=== PATIENT | female | born 1970 | race Two or more races ===

== ENCOUNTER 2025-04-28 14:42 | Inpatient (IN) | payer MEDICAID, OTHER ==
[~2025-04-28] VITALS: Ht 165.1 cm; Wt 66.7 kg
--- NOTE | 2025-04-28 15:11 | ED.PDOC ---
HPI (NEURO) HPI Comments 54y F who presents to the ED for chief complaint of dizziness. Pt states yesterday,after dinner, pt went to bedroom and states while changing clothes, he felt lightheaded and dizzy. Pt denies any associated syncopal episodes and went to sleep. Pt today AM, she has been having dizziness and noted felt weak with increased dizziness while attempting to ambulate. Pt had associated nausea and vomiting episode and came to the ED for evaluation. Pt now in the ED, presents in wheelchair and is having dizziness but is alert and oriented x 4 and otherwise has noted stable vitals. Pt denies any other symptoms. Chief Complaint: Dizziness Time Seen by MD: 15:07 Reviewed Notes: Medications, Allergies Information Source: Patient Mode of Arrival: Wheelchair Brought in by: self Past Medical History PAST MEDICAL HISTORY: DM, HTN Surgical History: Denies all surgeries RECONCILIATION ANALYST History: Denies all RECONCILIATION ANALYST Hx Family History Family History: Reviewed,noncontributory to illness Social History Smoker: Non-Smoker Alcohol: Denies ETOH Use Drugs: Denies Drug Use Lives In: Home Constitutional: reports: malaise, weakness; denies: chills, diaphoresis, fatigue, fever, sweats, others EENTM: denies: blurred vision, double vision, ear bleeding, ear discharge, ear drainage, ear pain, ear ringing, eye pain, eye redness, hearing loss, mouth pain, mouth swelling, nasal discharge, nose bleeding, nose congestion, nose pain, photophobia, tearing, throat pain, throat swelling, voice changes, others Respiratory: denies: cough, hemoptysis, orthopnea, SOB at rest, shortness of breath, SOB with excertion, stridor, wheezing, others Cardiovascular: reports: dizzy spells; denies: chest pain, diaphoresis, Dyspnea on exertion, edema, irregular heart beat, left arm pain, lightheadedness, palpitations, PND, syncope, others Gastrointestinal: denies: abdomen distended, abdominal pain, blood streaked bowels, constipated, diarrhea, dysphagia, difficulty swallowing, hematemesis, melena, nausea, poor appetite, poor fluid intake, rectal bleeding, rectal pain, vomiting, others Genitourinary: denies: abnormal vagina bleeding, burning, dyspareunia, dysuria, flank pain, frequency, hematuria, incontinence, pain, , vagina discharge, urgency, others Neurological: reports: dizziness; denies: fainting, headache, left sided numbness, left sided weakness, numbness, paresthesia, pre-existing deficit, right sided numbness, right sided weakness, seizure, speech problems, tingling, tremors, weakness, others Musculoskeletal: denies: back pain, gout, joint pain, joint swelling, muscle pain, muscle stiffness, neck pain, others Integumetry: denies: bruises, change in color, change in hair/nails, dryness, laceration, lesions, lumps, rash, wounds, others Allergic/Immunocompromised: denies: Difficulty Healing, Frequent Infections, Hives, Itching, others Hematologic/Lymphatic: denies: anemia, blood clots, easy bleeding, easy bruising, swollen glands, others Endocrine: denies: excessive hunger, excessive sweating, excessive thirst, excessive urination, flushing, intolerance to cold, intolerance to heat, unexplained weight gain, unexplained weight loss, others Psychiatric: denies: anxiety, bipolar disorder, depression, hopeless, panic disorder, schizophrenia, sleepless, suicidal, others All Other Systems: Reviewed and Negative Physical Exam General Appearance: Moderate Distress HEENT: Normal ENT Inspection, Pharynx Normal, TMs Normal Neck: Full Range of Motion, Non-Tender, Normal, Normal Inspection Respiratory: Chest Non-Tender, Lungs Clear, No Accessory Muscle Use, No Respiratory Distress, Normal Breath Sounds Cardiovascular: No Edema, No JVD, No Murmur, No Gallop, Normal Peripheral Pulses, Regular Rate/Rhythm Breast Exam: Deferred Gastrointestinal: No Organomegaly, Non Tender, No Pulsatile Mass, Normal Bowel Sounds, Soft Genitalia: Deferred Pelvic: Deferred Rectal: Deferred Extremities: No calf tenderness, Normal capillary refill, Normal inspection, Normal range of motion, Non-tender, No pedal edema Musculoskeletal : Apperance: Normal Neurologic: Alert, incident manager II-XII nml as Tested, No Motor Deficits, Normal Affect, Normal Mood, No Sensory Deficits Cerebellar Function: NOT DONE Reflexes: NOT DONE Skin: Dry, Normal Color, Warm Peripheral Pulses: 3+ Radial (R), 3+ Radial (L) Lymphatic: No Adenopathy EKG EKG : Pulse Rate (adult): 100 [place]: Normal Cardiac Rhythm: ST Block: None Hypertrophy: None ST: Normal Was a procedure done? Was a procedure done?: No Differential Diagnosis (SZ) Seizure: Psychogenic Seizure, Closed Head Injury, CVA/TIA General Weakness: Dehydration, Dysrhythmia, Electrolyte imbalance, Encephalopathy, Hypoglycemia, Hypotension, Vertigo: central, Vertigo: peripheral X-Ray, Labs, Meds, VS Vital Signs Date Time Temp Pulse Resp B/P (MAP) Pulse Ox O2 Delivery O2 Flow Rate FiO2 04/28/25 15:11 100 04/28/25 14:56 100 04/28/25 14:44 98.0 123 18 123/86 97 98.0 Lab Test 04/28/25 15:00 Range/Units White Blood Count 14.2 H 4.4-10.8 10^3/uL Red Blood Count 5.40 H 4.0-5.20 10^6/uL Hemoglobin 16.0 12.2-16.2 g/dL Hematocrit 46.2 H 36.0-46.0 % Mean Corpuscular Volume 85.7 80.0-100.0 fL Mean Corpuscular Hemoglobin 29.6 28.0-32.0 pg Mean Corpuscular Hemoglobin Concent 34.6 32.0-36.0 g/dL Red Cell Distribution Width 14.0 11.8-14.3 % Platelet Count 460 H 140-450 10^3/uL Mean Platelet Volume 7.1 6.9-10.8 fL Neutrophils (%) (Auto) 87.3 H 37.0-80.0 % Lymphocytes (%) (Auto) 7.4 L 10.0-50.0 % Monocytes (%) (Auto) 4.7 0.0-12.0 % Eosinophils (%) (Auto) 0.3 0.0-7.0 % Basophils (%) (Auto) 0.3 0.0-2.0 % Neutrophils # (Auto) 12.4 H 1.6-8.6 10 ^3/uL Lymphocytes # (Auto) 1.0 0.4-5.4 10 ^3/uL Monocytes # (Auto) 0.7 0-1.3 10 ^3/uL Eosinophils # (Auto) 0 0-0.8 10 ^3/uL Basophils # (Auto) 0 0-0.2 10 ^3/uL Nucleated Red Blood Cells 0.0 % Sodium Level 138 136-145 mmol/L Potassium Level 3.8 3.5-5.1 mmol/L Chloride Level 103 98-107 mmol/L Carbon Dioxide Level 22 20-31 mmol/L Anion Gap 13 5-15 Blood Urea Nitrogen 12 9-23 mg/dL Creatinine 0.78 0.550-1.02 mg/dL Glomerular Filtration Rate Calc 90 >90 mL/min BUN/Creatinine Ratio 15.4 10.0-20.0 Serum Glucose 138 H 74-106 mg/dL Calcium Level 9.9 8.7-10.4 mg/dL Troponin I High Sensitivity < 3 L </=34 ng/L PROCEDURE(s): HWOCT - HEAD WITHOUT CONTRAST IMPRESSION: NO ACUTE INTRACRANIAL FINDINGS Patient alert. Complaining of dizziness. EKG reviewed does not show any acute changes. Vitals stable. Saturation pristine on room air. Establish intravenous access. Was given fluids. Neurological examination pristine. Explained to the patient. Was told to follow up with her primary care physician. Was told to come back if there is any problem. Time of 1ST Reevaluation: 15:40 Reevaluation 1ST: Unchanged Patient Education/Counseling: Diagnosis, Treatment Family Education/Counseling: No Family Present Departure 1 Departure Time of Disposition: 15:32 Impression: Primary Impression: Autonomic disorder Disposition: 01 HOME / SELF CARE / HOMELESS Condition: Good Discharged With: Self Critical Care Note Critical Care Time?: No Stability Stability form required: No Heart Score Heart Score: Heart Score Response (Comments) Value History Slightly Suspicious 0 EKG Normal 0 Age 45-64 1 Risk Factors >3 or Hx ASHD 2 Troponin Normal limit 0 Total 3 I personally scribed for ROSALINE LINTON MD) on 04/28/25 at 15:11. Electronically submitted by Amy Stafford ([place]). I personally scribed for ROSALINE LINTON MD ([email or web address]) on 04/28/25 at 17:16. Electronically submitted by Amy BHATIA). ROSALINE LINTON MD Apr 28, 2025 15:11
[2025-04-28 15:24] LABS: Chloride 103 mmol/L (98-107); Potassium 3.8 mmol/L (3.5-5.1); Sodium 138 mmol/L (136-145)
[2025-04-28 15:25] LABS: Anion Gap 13 (5-15); Carbon Dioxide 22 mmol/L (20-31)
[2025-04-28 15:26] LABS: Calcium 9.9 mg/dL (8.7-10.4)
[2025-04-28 15:30] LABS: BUN/Creatinine Ratio 15.4 (10.0-20.0); Blood Urea Nitrogen 12 mg/dL (9-23); Hematocrit 46.2 % (36.0-46.0); Hemoglobin 16.0 g/dL (12.2-16.2); Mean Corpuscular Hemoglobin 29.6 pg (28.0-32.0); Mean Corpuscular Volume 85.7 fL (80.0-100.0); Nucleated Red Blood Cells % 0.0 %
[2025-04-28 15:31] LABS: Glucose 138 mg/dL (74-106)
--- NOTE | 2025-04-28 15:39 | DVH ---
CLINICAL HISTORY: DIZZINESS TECHNIQUE: Helical scanning was performed of the head from the skull base to the vertex. Multiplanar reconstructions were performed. This exam was performed according to our departmental dose optimization program. Up-to-date CT equipment and radiation dose reduction techniques are utilized as appropriate. WID: COMPARISON: None FINDINGS: There is no acute intracranial hemorrhage, CT evidence of acute ischemic changes, mass effect, midline shift, or extra-axial fluid collection. Ventricles are within normal limits The imaged intraorbital structures are unremarkable The imaged paranasal sinuses are clear. The mastoid air cells are clear. The calvarium is intact. IMPRESSION: NO ACUTE INTRACRANIAL FINDINGS
[2025-04-28] MEDS: SODIUM CHLORIDE 0.9% 1,000 ML IV ONE (18:51)
[2025-04-28] MEDS ORDERED: ONDANSETRON HCL 4 MG/2 ML VIAL IV PRN (22:30)
[2025-04-29] VITALS (13 sets, daily range): BP systolic 108–132; BP diastolic 43–73; PULSE 68–93; RESP 14–20; TEMP 98.1–98.9; O2SAT 95–100
[2025-04-29] MEDS: SODIUM CHLORIDE 0.9% 500 ML IV ONE (01:15)
[2025-04-29] MEDS ORDERED: BENA40TA71 PO (01:51)
[2025-04-29] MEDS ORDERED: METF-771 PO (01:51)
[2025-04-29] MEDS ORDERED: MELO7.5T7 PO (01:51)
[2025-04-29] MEDS ORDERED: ATOR20TA50 PO (01:51)
[2025-04-29 03:44] LABS: COVID19 ANTIGEN SOFIA FIA POSITIVE (NEGATIVE)
--- NOTE | 2025-04-29 05:00 | DVH ---
CHEST RADIOGRAPH Indication: asthma Technique: Single frontal view of the chest was obtained COMPARISON: None FINDINGS: Lines and Tubes: None Lungs: Increased interstital prominence. This may represent pulmonary vascular congestion and/or viral pneumonia. Pleura: No effusion. No pneumothorax. Cardiomediastinal contours: Unremarkable Bones: Unremarkable IMPRESSION: Increased interstital prominence. This may represent pulmonary vascular congestion and/or viral pneumonia.
--- NOTE | 2025-04-29 05:49 | DVHHPRES ---
History of Present Illness Resident Creating Document: BRENDAN MIJARES RESIDENT History of Present Illness Patient is a 54-year-old female with past medical history of diabetes mellitus, hypertension, asthma, vertigo who presented to the ED with chief complaints of dizziness which is associated with shortness of breath and chest pressure which is 7/10 in intensity since yesterday. Patient states that she felt lightheaded and dizzy were changing clothes and her legs gave out which made her sit down. Patient today morning also began to be dizzy while walking and felt weak and had to sit down patient denies any syncopal episodes or head trauma, loss of consciousness. Patient states she also had nausea, vomiting episode which was forced. patient states that this is not the 1st time she had these symptoms. PMHx: diabetes mellitus, hypertension, asthma, vertigo PSHx: 2 ectopic pregnancies, cholecystectomy Family history: reviewed, noncontributory Social history: denies smoking, drinking, drug use Home medication: atorvastatin, aspirin, metformin, benazepril, meclizine Allergic history: denies [facility] Patient is A&O x4 and still complains of dizziness and shortness of breath which is more when she stands up. Patient denies any chest pressure or chest pain, nausea, vomiting, diarrhea, constipation. Review of Systems Constitutional: No: Fever, Chills, Sweats, Weakness, Malaise, Other Eyes: No: Pain, Vision change, Conjunctivae inflammation, Eyelid inflammation, Other, Redness ENT: No: Ear pain, Ear discharge, Nose pain, Nose discharge, Nose congestion, Mouth pain, Mouth swelling, Throat pain, Throat swelling, Other Respiratory: Shortness of breath; No: Cough, Dry, SOB with excertion, Wheezing, Hemoptysis, Pleuritic Pain, Sputum, Wheezing, Other Cardiovascular: No: Chest Pain, Palpitations, Orthopnea, Paroxysmal Noc. Dyspnea, Edema, Lt Headedness, Other Gastrointestinal: No: Nausea, Vomiting, Abdominal Pain, Diarrhea, Constipation, Melena, Hematochezia, Other Genitourinary: No Dysuria, No Frequency, No Incontinence, No Hematuria, No Retention, No Other Musculoskeletal: No: other, neck pain, shoulder pain, arm pain, back pain, hand pain, leg pain, foot pain Skin: No: Rash, Lesions, Jaundice, Bruising, Other Neurological: No: Weakness, Numbness, Incoordination, Change in speech, Confusion, Seizures, Other Allergies: Coded Allergies: NO KNOWN ALLERGIES (Unverified , 04/28/25) Medications Current Medications Medications Dose Ordered Sig/Hemalatha Route Start Time Stop Time Status Last Admin Dose Admin Ondansetron HCl 4 mg Q4HP PRN IV 04/28/25 22:30 Enoxaparin Sodium 40 mg DAILY SC 04/29/25 10:00 Albuterol 2.5 mg Q4HWA [facility] 04/29/25 06:00 Ipratropium Rel[place] 0.5 mg Q6HWA [facility] 04/29/25 06:00 Azithromycin 500 mg DAILY PO 04/29/25 10:00 Atorvastatin Calcium 40 mg HS PO 04/29/25 22:00 Exam Vital Signs Vital Signs Date Time Temp Pulse Resp B/P (MAP) Pulse Ox O2 Delivery O2 Flow Rate FiO2 04/29/25 01:41 75 20 117/66 97 0.0 21 04/29/25 01:00 98.9 98.9 04/28/25 21:52 Room Air Exam General: Patient alert and oriented in person, place and time. Patient following commands. Generalized weakness HEENT: Normocephalic, atraumatic, moist mucous membranes Respiratory/pulmonary: Clear lungs bilaterally, vesicular murmurs present in almost all lung carlos, no associated crackles or wheezes. Cardiovascular: Normal heart sounds S1 and S2 with no associated murmurs Abdomen: Abdomen nondistended, there is no pain to palpation in any of the abdominal quadrants, no palpable masses. Extremities: There is no peripheral edema present at the lower extremities. Peripheral Pulses: 3+ Radial (R). 3+ Radial (L). 3+ Dorsalis pedis (R). 3+ Dorsalis pedis(L) Skin: No rashes or pruritus, there is no sacral edema present at this time. Neurological: Intact cranial nerves with no focal neurologic deficits Labs/Xrays Labs Test 04/29/25 01:45 04/28/25 22:11 04/28/25 15:00 Range/Units Influenza Type A Antigen Negative Negative Influenza Type B Antigen Negative Negative SARS-CoV-2 Antigen (Rapid) Positive NEGATIVE POC Glucose 108 H 70-106 mg/dl White Blood Count 14.2 H 4.4-10.8 10^3/uL Red Blood Count 5.40 H 4.0-5.20 10^6/uL Hemoglobin 16.0 12.2-16.2 g/dL Hematocrit 46.2 H 36.0-46.0 % Mean Corpuscular Volume 85.7 80.0-100.0 fL Mean Corpuscular Hemoglobin 29.6 28.0-32.0 pg Mean Corpuscular Hemoglobin Concent 34.6 32.0-36.0 g/dL Red Cell Distribution Width 14.0 11.8-14.3 % Platelet Count 460 H 140-450 10^3/uL Mean Platelet Volume 7.1 6.9-10.8 fL Neutrophils (%) (Auto) 87.3 H 37.0-80.0 % Lymphocytes (%) (Auto) 7.4 L 10.0-50.0 % Monocytes (%) (Auto) 4.7 0.0-12.0 % Eosinophils (%) (Auto) 0.3 0.0-7.0 % Basophils (%) (Auto) 0.3 0.0-2.0 % Neutrophils # (Auto) 12.4 H 1.6-8.6 10 ^3/uL Lymphocytes # (Auto) 1.0 0.4-5.4 10 ^3/uL Monocytes # (Auto) 0.7 0-1.3 10 ^3/uL Eosinophils # (Auto) 0 0-0.8 10 ^3/uL Basophils # (Auto) 0 0-0.2 10 ^3/uL Nucleated Red Blood Cells 0.0 % Sodium Level 138 136-145 mmol/L Potassium Level 3.8 3.5-5.1 mmol/L Chloride Level 103 98-107 mmol/L Carbon Dioxide Level 22 20-31 mmol/L Anion Gap 13 5-15 Blood Urea Nitrogen 12 9-23 mg/dL Creatinine 0.78 0.550-1.02 mg/dL Glomerular Filtration Rate Calc 90 >90 mL/min BUN/Creatinine Ratio 15.4 10.0-20.0 Serum Glucose 138 H 74-106 mg/dL Calcium Level 9.9 8.7-10.4 mg/dL Troponin I High Sensitivity < 3 L </=34 ng/L SEPSIS Sepsis Screen Date sepsis recognized/suspect: Apr 28, 2025 Time Sepsis recognized/suspect: 2200 Recent Procedure: No On Antibiotic Therapy: No Respiratory Rate >20: No Heart Rate >90: Yes Temp<36 C (96.8 F) or >38.3 C: No SBP <90 or MAP <65 mmHG: No New Acute Mental Status Change: No Is the patient on CPAP, BIPAP,: No Physician Orders Electrocardigram (04/28/25:) Admit (04/28/25:) Code Status (04/28/25:) 2 Gm Sodium Diet (04/29/25 Breakfast) Ondansetron Hcl (Zofran) (04/28/25 22:30) Enoxaparin Sodium (Lovenox) (04/29/25 10:00) Fall Risk Precautions In Place QSHIFT (04/28/25:) Complete Blood Count (04/29/25 04:00) Comprehensive Metabolic Panel (04/29/25 04:00) Condition: Critical (04/28/25:) Oxygen By Nasal Cannula (04/28/25:) Stat Ekg For Chest Pain (04/28/25:) Notify Md Of Changes From Base (04/28/25 22:) Coin Wrapping Machine Operator For 24 Hours (04/28/25 22:) Emergency Dysrhythmia Protocol (04/28/25:) Rhythm Strips Once Every Shift (04/28/25:) Electrocardigram (04/28/25 22:29) Chest Xray 1 View (04/29/25 01:12) Albuterol Medneb (Ventolin Medneb) (04/29/25 06:00) Ipratropium Medneb (Atrovent Medneb) (04/29/25 06:00) B-Type Natriuretic Peptide (04/29/25 01:12) Urinalysis (04/29/25 01:12) Drug Screen (04/29/25 01:12) PTPTT (04/29/25 01:12) Orthostatic Vital Signs (04/29/25 01:12) Magnesium (04/29/25 04:00) Azithromycin Tablet (Zithromax Tablet) (04/29/25 10:00) Hemoglobin A1c (04/29/25 04:30) Atorvastatin (Lipitor) (04/29/25 22:00) Vital Signs Date Time Temp Pulse Resp B/P (MAP) Pulse Ox O2 Delivery O2 Flow Rate FiO2 04/29/25 01:41 75 20 117/66 97 0.0 21 04/29/25 01:00 98.9 87 16 121/71 (88) 97 98.9 04/28/25 22:07 82 04/28/25 21:52 98.2 98 20 117/66 (83) 97 98.2 04/28/25 21:52 98 20 97 Room Air Assessment/Plan Assessment/Plan Presyncope due to Orthostatic hypotension Pneumonia, likely due to Gram-positive/Gram-negative bacterial/viral COVID 19 pneumonia Generalized weakness due to above -chest x-ray: Increased interstital prominence. This may represent pulmonary vascular congestion and/or viral pneumonia. -labetalol, ipratropium med nebs -azithromycin -orthostatic vitals -COVID, positive -influenza negative Diabetes mellitus HbA1c Hypertension -resume home med Asthma History of vertigo DVT prophylaxis: Lovenox Goals of care addressed with the patient for more than 27 minutes: Full code status Case discussed with Dr. Covarrubias, patient and nurse Plan discussed with: Patient My Orders Orders - BRENDAN MIJARES Procedure Category Date Status Time Admit ADMIT 04/28/25 Transmitted 22:27 Code Status CODE 04/28/25 Transmitted 22:27 2 Gm Sodium Diet DIET 04/29/25 Transmitted Breakfast Ondansetron Hcl PHA 04/28/25 In Process (Zofran) 22:30 Enoxaparin Sodium PHA 04/29/25 In Process (Lovenox) 10:00 Fall Risk Precautions FRANCESCA 04/28/[address] 22:27 Complete Blood Count LAB 04/29/25 Logged 04:00 Comprehensive LAB 04/29/25 Logged Metabolic Panel 04:00 Condition: Critical FRANCESCA 04/28/25 In Process 22:27 Oxygen By Nasal RT 04/28/25 Transmitted Cannula 22:27 Stat Ekg For Chest FRANCESCA 04/28/25 In Process Pain 22:27 Notify Of Changes FRANCESCA 04/28/25 In Process From Base 22:27 Coin Wrapping Machine Operator For FRANCESCA 04/28/25 In Process 24 Hours 22:27 Emergency Dysrhythmia FRANCESCA 04/28/25 In Process Protocol 22:27 Rhythm Strips Once [facility] 04/28/25 In Process Every Shift 22:27 Electrocardigram EKG 04/28/25 Logged 22:29 Chest Xray 1 View XY 04/29/25 Resulted 01:12 Albuterol Medneb PHA 04/29/25 In Process (Ventolin Medneb) 06:00 Ipratropium Medneb PHA 04/29/25 In Process (Atrovent Medneb) 06:00 B-Type Natriuretic LAB 04/29/25 Logged Peptide 01:12 Urinalysis LAB 04/29/25 Logged 01:12 Drug Screen LAB 04/29/25 Logged 01:12 PTPTT LAB 04/29/25 Logged 01:12 Orthostatic Vital ORDERS 04/29/25 Transmitted Signs 01:12 Magnesium LAB 04/29/25 Logged 04:00 Azithromycin Tablet PHA 04/29/25 In Process (Zithromax Tablet) 10:00 Hemoglobin A1c LAB 04/29/25 Logged 04:30 Atorvastatin (Lipitor) PHA 04/29/25 In Process 22:00 Visit Coding STANDARD RES Billing Provider: BRANDEE COVARRUBIAS MD Date of Service if different f: Apr 28, 2025 Common Visit Codes: 87532-CSQKYIW INP/OBS CARE (HIGH) Secondary Visit Codes: [id number] CARE PLAN 30 MINUTES BRENDAN MIJARES RESIDENT Apr 29, 2025 05:49
[2025-04-29] MEDS: ALBUTEROL SULF 2.5 MG/0.5ML(0.5%) NEB SOLN NEB SCH (08:06)
[2025-04-29] MEDS: IPRATROPIUM BROM 0.5 MG/2.5ML INH SOL NEB SCH (08:07)
--- NOTE | 2025-04-29 08:26 | ECG ---
[facility] Test Date: 2025-04-28 Test Time: 14:56:41 Pat Name: MARY RAJAN Department: Room: 0249T B Gender: F Form Coverer: GP : 1970 Requested By: ROSALINE LINTON Order Number: [id number] Reading MD: Keith Alfred Measurements Intervals [place] Rate: 100 P: 75 [place]: 120 QRS: 67 QRSD: 75 T: -26 QT: 332 QTc: 429 Interpretive Statements Sinus tachycardia Borderline T abnormalities, diffuse leads Baseline wander in lead(s) II,III,aVR,aVL,aVF,V1,V2,V3 Electronically Signed On 04-29-2025 10:33:26 PST by Keith Alfred Please click the below link to view image of tracing.
[2025-04-29] MEDS: AZITHROMYCIN 250 MG TAB PO SCH (09:33)
[2025-04-29] MEDS: ZINC SULFATE 220mg CAP or TAB PO SCH (09:33)
[2025-04-29] MEDS: ENOXAPARIN SOD 40 MG/0.4 ML SYRINGE SC SCH (09:34)
[2025-04-29] MEDS ORDERED: ALBUTEROL SULF HFA 90MCG INH 200DOSE IN PRN ×2 (10:00→10:30)
--- NOTE | 2025-04-29 10:32 | DVHPNRES ---
Progress Note Date Seen: Apr 29, 2025 Resident Creating Document: RONALD CHRISTINA RESIDENT Medical Necessity Reason Pt with a Central, PICC or Fol: No Subjective Review of Systems Patient is 74 years old female with a past medical history of hypertension, diabetes mellitus, asthma came with a complaint of dizziness and shortness of breaths and chest pain. As per patient she has been having dizziness, feeling tired chest pain and shortness of breaths that started 2 days before. Has been was central, intermittent, pressure-like, no radiation, no aggravating or relieving factor, mild in nature. Patient also endorsed some shortness of breaths. Patient reported she was also feeling tired and fatigued and feeling dizzy when titrate walk around. Denied any fever, cough, palpitation, diarrhea, acute joint redness or swelling or sick contact. On arrival patient was tachycardic, Initial lab workup revealed leukocytosis with WBC 14.2, white with a normal limit, tested positive for COVID 19. CXR- Increased interstital prominence, may represent pulmonary vascular congestion and/or viral pneumonia. CT head no acute intracranial finding. EKG sinus tachycardia, no acute STT wave change PMHx: diabetes mellitus, hypertension, asthma, vertigo PSHx: 2 ectopic pregnancies, cholecystectomy Family history: reviewed, noncontributory Social history: denies smoking, drinking, drug use Home medication: atorvastatin, aspirin, metformin, benazepril, meclizine Allergic history: denies ROS Gastrointestinal- denies any rectal bleeding, nausea or vomiting Musculoskeletal-denies acute joint swelling or tenderness or redness Neurological- denies acute dysarthria, dysphagia, change in vision Psychiatry- denies depression or SI or HI Skin- denies acute rash or purpura Patient was seen today at bedside Labs and chart reviewed Ordered blood culture Patient on ceftriaxone and azithromycin for pneumonia As patient is a room air, no acute respiratory distress, we will continue conservative management for COVID-19 Objective vital signs Vital Sign Date Time Temp Pulse Resp B/P (MAP) Pulse Ox O2 Delivery O2 Flow Rate FiO2 04/29/25 08:13 68 16 100 04/29/25 08:07 Room Air* 0 21 21 04/29/25 04:24 98.4 112/57 (75) 98.4 Total Intake and Output 04/28/25 04/28/25 04/29/25 15:00 23:00 07:00 Intake Total 1000 ml 0 ml Balance 1000 ml 0 ml medications Current Medications Medications Dose Ordered Sig/Hemalatha Route Start Time Stop Time Status Last Admin Dose Admin Ondansetron HCl 4 mg Q4HP PRN IV 04/28/25 22:30 Enoxaparin Sodium 40 mg DAILY SC 04/29/25 10:00 04/29/25 09:34 40 MG Azithromycin 500 mg DAILY PO 04/29/25 10:00 04/29/25 09:33 500 MG Atorvastatin Calcium 40 mg HS PO 04/29/25 22:00 Zinc Sulfate 220 mg DAILY PO 04/29/25 10:00 04/29/25 09:33 220 MG Ceftriaxone Sodium 50 ml @ 100 mls/hr DAILY@09 IV 04/30/25 09:00 Albuterol 180 mcg TIDPRN PRN IN 04/29/25 10:00 UNV Albuterol 180 mcg Q6HR IN 04/29/25 12:00 UNV Sodium Chloride 1,000 ml @ 100 mls/hr Q10H IV 04/29/25 10:30 UNV Albuterol 180 mcg TID PRN IN 04/29/25 10:30 UNV Examination General examination- awake, alert HEENT- PEERLA, no acute nasal discharge Cardiovascular- Chest wall tenderness +, S1-S2 audible, rate and rhythm regular, no murmur Respiratory-wheezing bilaterally+ Gastrointestinal-nontender, bowel sound+. Nondistended Musculoskeletal-no acute joint swelling or tenderness or redness Lower extremity- no leg edema Neurological- cranial nerves intact, no acute dysarthria or dysphagia Psychiatry- denies depression or SI or HI Skin- no acute rash or purpura laboratory and microbiology Laboratory Tests 04/28/25 15:00 Test 04/28/25 15:00 Range/Units Serum Glucose 138 H 74-106 mg/dL Problem List/Assessment/Plan Problem List/Assessment/Plan Assessment and plan-patient is a case of sepsis due to pneumonia and COVID-19. Conservative measures for COVID-19 as this patient is in room air without acute respiratory distress. On ceftriaxone and azithromycin for pneumonia. Pending blood culture. # sepsis likely due to pneumonia Acute pneumonia Gram-positive versus Gram-negative # COVID-19 pneumonia # asthma -patients leukocyte, tachycardic, tachypneic -COVID positive -chest x-rayIncreased interstital prominence, may represent pulmonary vascular congestion and/or viral pneumonia. -pending blood culture Continue ceftriaxone and azithromycin as prescribed -continue IV fluid as per -nebulization PRN -monitor vitals Isolation and contact precaution Conservative management for COVID-19 #Acute CP likely due to Costochondritis #ruled out ACS - EKG no acute ST/T wave changes - Trop I WNL - chest wall tenderness positive - continue current conservative managemnt # hypertension -monitor blood pressure # diabetes mellitus # hyperlipidemia -low carb diet Goals of care, Code status we will go; discussed with >15 minutes PUD prophylaxis: Pantoprazole DVT prophylaxis: Lovenox Plan discussed with Dr. Onofre , nursing staff, Total time spent on patient evaluation, chart review, assessment and plan, discussion discussion >35 minutes Plan discussed with: Patient, Other (RN) My Orders My Orders Orders - RONALD CHRISTINA Procedure Category Date Status Time Thyroid Stimulating LAB 04/29/25 Logged Hormone 07:10 Vitamin D, 25-Hydroxy LAB 04/29/25 Logged 07:10 Vitamin B12 LAB 04/29/25 Logged 07:10 Folate (Folic Acid) LAB 04/29/25 Logged 07:10 Hepatic Panel LAB 04/29/25 Logged 07:10 Lipid Panel LAB 04/29/25 Logged 07:10 Zinc Sulfate PHA 04/29/25 In Process 10:00 Mrcp Mri MRI 04/29/25 Logged 09:44 Albuterol Inhaler PHA 04/29/25 Logged (Ventolin Hfa) 10:00 Albuterol Inhaler PHA 04/29/25 Logged (Ventolin Hfa) 12:00 Sodium Chloride 0.9% PHA 04/29/25 Logged 10:30 Albuterol Inhaler PHA 04/29/25 Logged (Ventolin Hfa) 10:30 Visit Coding STANDARD RES Billing Provider: ROCKY PEREZ MD Date of Service if different f: Apr 29, 2025 Common Visit Codes: [id number] INP/OBS CARE(HIGH) RONALD CHRISTINA Apr 29, 2025 10:31
[2025-04-29] MEDS: SODIUM CHLORIDE 0.9% 1,000 ML IV SCH (10:56)
[2025-04-29 11:08] LABS: Hematocrit 41.3 % (36.0-46.0); Hemoglobin 14.3 g/dL (12.2-16.2); Mean Corpuscular Hemoglobin 29.8 pg (28.0-32.0); Mean Corpuscular Volume 86.1 fL (80.0-100.0); Nucleated Red Blood Cells % 0.1 %
[2025-04-29 11:23] LABS: Albumin 4.2 g/dL (3.2-4.8); Alkaline Phosphatase 77 U/L (46-116); Anion Gap 10 (5-15); BUN/Creatinine Ratio 14.3 (10.0-20.0); Blood Urea Nitrogen 10 mg/dL (9-23); Calcium 9.3 mg/dL (8.7-10.4); Carbon Dioxide 24 mmol/L (20-31); Chloride 105 mmol/L (98-107); Magnesium 2.0 mg/dL (1.6-2.6); Potassium 3.7 mmol/L (3.5-5.1); Sodium 139 mmol/L (136-145); Total Protein 6.8 g/dL (5.7-8.2)
[2025-04-29 11:24] LABS: Albumin 4.3 g/dL (3.2-4.8); Alkaline Phosphatase 77.0 U/L (46-116); Bilirubin, Total 0.5 mg/dL (0.2-1.0); Cholesterol 154.0 mg/dL (< 200); Total Protein 6.8 g/dL (5.7-8.2); Triglycerides 121.0 mg/dL (< 150)
[2025-04-29 11:25] LABS: Alanine Aminotransferase 102 U/L (7-40); Alanine Aminotransferase 102.0 U/L (7-40); Bilirubin, Direct 0.2 mg/dL (<0.3); Bilirubin, Total 0.5 mg/dL (0.2-1.0); Glucose 126 mg/dL (74-106); HDL Cholesterol 34.0 mg/dL (40-59); INR 1.01 (0.9-1.15); Partial Thromboplastin Time 29.4 SEC (24.5-34.5); Prothrombin Time 10.7 sec (9.3-11.8)
[2025-04-29] MEDS ORDERED: ALBUTEROL SULF HFA 90MCG INH 200DOSE IN SCH (12:00)
[2025-04-29] MEDS ORDERED: ALBUTEROL SULF 2.5 MG/0.5ML(0.5%) NEB SOLN NEB SCH (12:00)
[2025-04-29] MEDS: ALBUTEROL SULF HFA 90MCG INH 200DOSE IN SCH (12:00)
[2025-04-29] MEDS ORDERED: DEXTROSE (50%) 50ML SYRG IV PRN (14:15)
[2025-04-29] MEDS: PANTOPRAZOLE 40 MG TAB PO SCH (15:35)
[2025-04-29] MEDS: InsuLIN REG 1unit/0.01ml Soln (100units/ml) SC SCH (17:00)
[2025-04-29] MEDS: ACCU-CHEK COMFORT CURVE STRIP VI SCH (17:00)
[2025-04-29 17:02] LABS: Amphetamine Screen, Urine Neg (NEGATIVE); Barbiturate Scree,Urine Neg (NEGATIVE); Benzodiazephine Screen, Urine Neg (NEGATIVE); Cannabinoid Screen, Urine Neg (NEGATIVE); Cocaine Screen, Urine Neg (NEGATIVE); Opiate Scree,Urine Neg (NEGATIVE); Phencyclidine Screen, Urine Neg (NEGATIVE)
[2025-04-29 17:14] LABS: Urine Protein, UAD Negative (Negative)
--- NOTE | 2025-04-29 19:55 | ECG ---
[facility] Test Date: 2025-04-28 Test Time: 22:07:42 Pat Name: MARY RAJAN Department: Room: 0209 Gender: F Kitchen Manager: KEIRY : 1970 Requested By: ROSALINE LINTON Order Number: [id number] Reading MD: Keith Alfred Measurements Intervals [place] Rate: 82 P: 23 VA: 138 QRS: 33 QRSD: 75 T: 13 QT: 401 QTc: 469 Interpretive Statements Sinus rhythm Electronically Signed On 05-05-2025 17:29:22 PST by Keith Alfred Please click the below link to view image of tracing.
[2025-04-29] MEDS: ATORVASTATIN 20 MG TAB PO SCH (21:26)
[2025-04-30] VITALS (7 sets, daily range): BP systolic 104–119; BP diastolic 70–74; PULSE 70–86; RESP 14–20; TEMP 36.6; O2SAT 95–97
[2025-04-30] MEDS: ACETAMINOPHEN 325 MG TAB PO ONE (04:23)
[2025-04-30 06:24] LABS: Hematocrit 40.2 % (36.0-46.0); Hemoglobin 14.0 g/dL (12.2-16.2); Mean Corpuscular Hemoglobin 30.0 pg (28.0-32.0); Mean Corpuscular Volume 86.0 fL (80.0-100.0); Nucleated Red Blood Cells % 0.1 %
[2025-04-30 06:31] LABS: Anion Gap 11 (5-15); Carbon Dioxide 23 mmol/L (20-31); Chloride 105 mmol/L (98-107); Potassium 3.7 mmol/L (3.5-5.1); Sodium 139 mmol/L (136-145)
[2025-04-30 06:32] LABS: Calcium 9.2 mg/dL (8.7-10.4)
[2025-04-30 06:37] LABS: BUN/Creatinine Ratio 14.5 (10.0-20.0); Blood Urea Nitrogen 10 mg/dL (9-23)
[2025-04-30 06:38] LABS: Magnesium 2.0 mg/dL (1.6-2.6)
[2025-04-30 06:40] LABS: Glucose 116 mg/dL (74-106)
--- NOTE | 2025-04-30 14:01 | DVHPN2 ---
Reviewed: H&P Changes from previous H/P or p: No Changes General: Per HPI Eyes: No Pain, No Vision change, No Conjunctivae inflammation, No Eyelid inflammation, No Other, No Redness ENT: No Ear pain, No Ear discharge, No Nose pain, No Nose discharge, No Nose congestion, No Mouth pain, No Mouth swelling, No Throat pain, No Throat swelling, No Other Cardiovascular: No Chest Pain, No Palpitations, No Orthopnea, No Paroxysmal Noc. Dyspnea, No Edema, No Lt Headedness, No Other Respiratory: No Cough, No Dry; Shortness of breath; No SOB with excertion, No Wheezing, No Hemoptysis, No Pleuritic Pain, No Sputum, No Other Gastrointestinal: No Nausea, No Vomiting, No Abdominal Pain, No Diarrhea, No Constipation, No Melena, No Hematochezia, No Other Genitourinary: No Dysuria, No Frequency, No Incontinence, No Hematuria, No Retention, No Other Musculoskeletal: No other, No neck pain, No shoulder pain, No arm pain, No back pain, No hand pain, No leg pain, No foot pain Skin: No Rash, No Lesions, No Jaundice, No Bruising, No Other Objective Vitals Vital Signs Date Time Temp Pulse Resp B/P (MAP) Pulse Ox O2 Delivery O2 Flow Rate FiO2 04/30/25 12:34 96 Room Air 0.0 04/30/25 12:34 21 04/30/25 12:34 70 18 04/30/25 09:00 97.9 119/74 (89) 97.9 Intake/Output Intake and Output 04/30/25 07:00 Intake Total 1600 ml Balance 1600 ml Intake Oral 1600 ml # Voids 5 Exam GEN: Healthy appearing, well-developed, NAD. HEENT: NC/AT; MMM. CV: RRR, no m/r/g. LUNGS: CTAB, no w/r/c. ABD: Soft, NT/ND, NBS, no masses or organomegaly. EXT: skin Warm, well perfused. no rashes. No clubbing, cyanosis, or edema. NEURO: Ambulating with no limitations. No focal deficits. Medications Current Medications Medications Dose Ordered Sig/Hemalatha Route Start Time Stop Time Status Last Admin Dose Admin Ondansetron HCl 4 mg Q4HP PRN IV 04/28/25 22:30 Enoxaparin Sodium 40 mg DAILY SC 04/29/25 10:00 04/30/25 09:39 40 MG Azithromycin 500 mg DAILY PO 04/29/25 10:00 04/30/25 09:38 500 MG Atorvastatin Calcium 40 mg HS PO 04/29/25 22:00 04/29/25 21:26 40 MG Zinc Sulfate 220 mg DAILY PO 04/29/25 10:00 04/30/25 09:38 220 MG Ceftriaxone Sodium 50 ml @ 100 mls/hr DAILY@09 IV 04/30/25 09:00 04/30/25 09:39 100 MLS/HR Albuterol 180 mcg Q6HR IN 04/29/25 12:00 04/30/25 12:34 180 MCG Sodium Chloride 1,000 ml @ 100 mls/hr Q10H IV 04/29/25 10:30 04/29/25 21:26 100 MLS/HR Albuterol 180 mcg TID PRN IN 04/29/25 10:30 Diagnostic Test (Pha) 1 strip ACHS 04/29/25 17:00 04/30/25 11:44 1 STRIP Insulin Human Regular ACHS SC 04/29/25 17:00 04/30/25 11:46 2 UNITS Dextrose 50 ml UD PRN IV 04/29/25 14:15 Pantoprazole Sodium 40 mg DAILY@0600 PO 04/29/25 14:15 04/30/25 06:50 40 MG Laboratory Results Laboratory Tests 04/30/25 05:41 Chemistry Test 04/30/25 05:41 Calcium Level 9.2 mg/dL (8.7-10.4) Magnesium Level 2.0 mg/dL (1.6-2.6) Urinalysis Test 04/29/25 16:33 Urine Color Light-yellow (Yellow) Urine Clarity Clear (Clear) Urine pH 6.0 (5.0-9.0) Urine Specific [place] 1.011 (1.001-1.035) Urine Protein Negative (Negative) Urine Ketones Negative (Negative) Urine Blood Negative /uL (Negative) Urine Nitrite Negative (Negative) Urine Bilirubin Negative (Negative) Urine Urobilinogen 2 mg/dL (Negative) H Urine Leukocyte Esterase Negative /uL (Negative) Urine RBC <1 /hpf (0 - 4) Urine Microscopic WBC 2 /HPF (0-5) Urine Squamous Epithelial Cells Few /hpf (<5) Urine Bacteria Few /hpf (None Seen) H Urine Hyaline Casts Few /lpf (0 - 2) Urine Glucose Normal mg/dL (Normal) Microbiology Microbiology Date/Time Source Procedure Growth Status 04/29/25 12:11 Blood Blood Culture - Preliminary NO GROWTH AFTER 24 HOURS OF INCUBATION. Resulted Labs and/or images reviewed: Labs reviewed by me, Image(s) reviewed by me Assessment/Plan Assessment/Plan 04/30: Patient on room air, no breathing problems no work of breathing. On room air. Dizziness resolving. We will likely send home with some azithromycin 500 mg once daily for 5 days., Patient to hydrate well, plenty of warm fluids as conservative measures, okay to use [id number] cough and cold medications for supportive care.. Continue other home medications. Follow up with PCP to review discharge. clinic follow up 1 week. COVID isolation at home with regular mask 5 days. Diagnosis: # sepsis likely due to pneumonia # Acute pneumonia Gram-positive versus Gram-negative # Acute CP likely due to Costochondritis # COVID-19 infection # ruled out ACS # asthma # hypertension Plan: IV antibiotics COVID isolation Prn duo nebs Continue home meds DVT prophylaxis Med surge Full code Plan discussed with: Patient Date of Service: Apr 30, 2025 Billing Provider: ROCKY PEREZ MD Common Visit Codes: [id number] INP/OBS CARE(HIGH) ROCKY PEREZ MD Apr 30, 2025 14:01
[2025-04-30] MEDS ORDERED: AZIT500T66 PO (15:32)
--- NOTE | 2025-04-30 15:37 | DVHDS2 ---
Discharge Summary Date of Admission Apr 28, 2025 at 22:27 Date of Discharge: Apr 30, 2025 Labs/Diagnostic Data: Laboratory Results Test 04/30/25 11:33 04/30/25 05:41 04/29/25 16:33 04/29/25 12:02 POC Glucose 155 mg/dl (70-106) White Blood Count 9.4 10^3/uL (4.4-10.8) Red Blood Count 4.67 10^6/uL (4.0-5.20) Hemoglobin 14.0 g/dL (12.2-16.2) Hematocrit 40.2 % (36.0-46.0) Mean Corpuscular Volume 86.0 fL (80.0-100.0) Mean Corpuscular Hemoglobin 30.0 pg (28.0-32.0) Mean Corpuscular Hemoglobin Concent 34.9 g/dL (32.0-36.0) Red Cell Distribution Width 13.8 % (11.8-14.3) Platelet Count 366 10^3/uL (140-450) Mean Platelet Volume 7.0 fL (6.9-10.8) Neutrophils (%) (Auto) 67.3 % (37.0-80.0) Lymphocytes (%) (Auto) 21.0 % (10.0-50.0) Monocytes (%) (Auto) 8.3 % (0.0-12.0) Eosinophils (%) (Auto) 3.1 % (0.0-7.0) Basophils (%) (Auto) 0.3 % (0.0-2.0) Neutrophils # (Auto) 6.3 10 ^3/uL (1.6-8.6) Lymphocytes # (Auto) 2.0 10 ^3/uL (0.4-5.4) Monocytes # (Auto) 0.8 10 ^3/uL (0-1.3) Eosinophils # (Auto) 0.3 10 ^3/uL (0-0.8) Basophils # (Auto) 0 10 ^3/uL (0-0.2) Nucleated Red Blood Cells 0.1 % Sodium Level 139 mmol/L (136-145) Potassium Level 3.7 mmol/L (3.5-5.1) Chloride Level 105 mmol/L (98-107) Carbon Dioxide Level 23 mmol/L (20-31) Anion Gap 11 (5-15) Blood Urea Nitrogen 10 mg/dL (9-23) Creatinine 0.69 mg/dL (0.550-1.02) Glomerular Filtration Rate Calc 103 mL/min (>90) BUN/Creatinine Ratio 14.5 (10.0-20.0) Serum Glucose 116 mg/dL (74-106) Calcium Level 9.2 mg/dL (8.7-10.4) Magnesium Level 2.0 mg/dL (1.6-2.6) Urine Color Light-yellow (Yellow) Urine Clarity Clear (Clear) Urine pH 6.0 (5.0-9.0) Urine Specific [place] 1.011 (1.001-1.035) Urine Protein Negative (Negative) Urine Ketones Negative (Negative) Urine Blood Negative /uL (Negative) Urine Nitrite Negative (Negative) Urine Bilirubin Negative (Negative) Urine Urobilinogen 2 mg/dL (Negative) Urine Leukocyte Esterase Negative /uL (Negative) Urine RBC <1 /hpf (0 - 4) Urine Microscopic WBC 2 /HPF (0-5) Urine Squamous Epithelial Cells Few /hpf (<5) Urine Bacteria Few /hpf (None Seen) Urine Hyaline Casts Few /lpf (0 - 2) Urine Glucose Normal mg/dL (Normal) Urine Opiates Screen Neg (NEGATIVE) Urine Fentanyl Screen Neg (NEGATIVE) Urine Barbiturates Screen Neg (NEGATIVE) Urine Phencyclidine Screen Neg (NEGATIVE) Urine Amphetamines Screen Neg (NEGATIVE) Urine Benzodiazepines Screen Neg (NEGATIVE) Urine Cocaine Screen Neg (NEGATIVE) Urine Cannabinoids Screen Neg (NEGATIVE) Lactic Acid Level 1.0 mmol/L (0.4-2.0) Test 04/29/25 10:49 04/29/25 01:45 04/28/25 15:00 Prothrombin Time 10.7 sec (9.3-11.8) Prothrombin Time INR 1.01 (0.9-1.15) Activated Partial Thromboplast Time 29.4 SEC (24.5-34.5) Hemoglobin A1c 6.4 % A1C (<5.7) Total Bilirubin 0.5 mg/dL (0.2-1.0) Direct Bilirubin 0.2 mg/dL (<0.3) Aspartate Amino Transferase (AST) 56 U/L (13-40) Alanine Aminotransferase (ALT) 102 U/L (7-40) Alkaline Phosphatase 77 U/L (46-116) C-Reactive Protein High Sensitivity 1.77 mg/dL (<1.0) B-Type Natriuretic Peptide 0.02 pg/mL (0-100) Total Protein 6.8 g/dL (5.7-8.2) Albumin 4.3 g/dL (3.2-4.8) Triglycerides Level 121 mg/dL (< 150) Cholesterol Level 154 mg/dL (< 200) LDL Cholesterol 111 mg/dL (< 100) HDL Cholesterol 34 mg/dL (40-59) Vitamin D 25-Hydroxy 31.4 ng/mL (30.0-100) Thyroid Stimulating Hormone (TSH) 0.69 uIU/mL (0.55-4.78) Influenza Type A Antigen Negative (Negative) Influenza Type B Antigen Negative (Negative) SARS-CoV-2 Antigen (Rapid) Positive (NEGATIVE) Troponin I High Sensitivity < 3 ng/L (</=34) Other Laboratory Tests 04/30/25 05:41 Brief Hx & Hospital Course: 74 years old female with a past medical history of hypertension, diabetes mellitus, asthma came with a complaint of dizziness and shortness of breaths and chest pain. As per patient she has been having dizziness, feeling tired chest pain and shortness of breaths that started 2 days before. Has been was central, intermittent, pressure-like, no radiation, no aggravating or relieving factor, mild in nature. Patient also endorsed some shortness of breaths. Patient reported she was also feeling tired and fatigued and feeling dizzy when titrate walk around. Denied any fever, cough, palpitation, diarrhea, acute joint redness or swelling or sick contact. On arrival patient was tachycardic, Initial lab workup revealed leukocytosis with WBC 14.2, white with a normal limit, tested positive for COVID 19. CXR- Increased interstital prominence, may represent pulmonary vascular congestion and/or viral pneumonia. CT head no acute intracranial finding. EKG sinus tachycardia, no acute STT wave change 04/30: COVID positive, troponins negative, EKG unconcerning. Symptoms concern for post COVID pneumonia. Treated with IV antibiotics, patient continues improving. Dizziness also improving. Orthostatic vitals negative. Blood cultures negative. Stable for discharge per plan below. Diagnosis: # sepsis likely due to pneumonia # Acute pneumonia Gram-positive versus Gram-negative # Acute CP likely due to Costochondritis # COVID-19 infection # ruled out ACS # asthma # hypertension Plan: azithromycin 500 mg once daily for 5 days., Patient to hydrate well, plenty of warm fluids as conservative measures, okay to use [id number] cough and cold medications for supportive care.. Continue other home medications. Follow up with PCP to review discharge. dC clinic follow up 1 week. COVID isolation at home with regular mask 5 days. Condition at Discharge: Fair Final Diagnosis/Problems List # sepsis likely due to pneumonia # Acute pneumonia Gram-positive versus Gram-negative # Acute CP likely due to Costochondritis # COVID-19 infection # ruled out ACS # asthma # hypertension Discharge Disposition: Home Discharge Instruct/Medications Diet: Regular Activity: No Restrictions, As Tolerated Follow Up/Referral: below Medications: below Scheduled Atorvastatin Calcium (Atorvastatin Calcium), 1 TAB PO DAILY, (Reported) Azithromycin (Azithromycin), 1 TAB PO DAILY Benazepril Hcl (Benazepril Hcl), 1 TAB PO DAILY, (Reported) Meloxicam (Meloxicam), 1 TAB PO BID, (Reported) Miscellaneous Medications Metformin Hydrochloride (Metformin HCl ER), PO, (Reported) Discharge Statement: "Patient was advised to return to the ER or call 911 if any headaches, dizziness, shortness of breath, chest pain, abdominal pain, bleeding, fevers, or worsening of medical condition. Patient was counseled about treatment plan, medications, possible side effects, patientverbalized understanding. All questions were answered to the best of my ability. This discharge took greater then 30 minutes in planning, reviewing documentation, counseling the patient, and discussing with other team members." Date of Service: Apr 30, 2025 Billing Provider: ROCKY PEREZ MD Common Visit Codes: [id number] DISCH DAY >30min ROCKY PEREZ MD Apr 30, 2025 15:37
[2025-05-01] MEDS ORDERED: HYDR-4902 PO (15:00)
== END 2025-04-30 16:15 | disposition home or self-care (01) | DRG 720 ==
LOC: ER 14:42 → OVERFLOW 22:27 → TELE-WESTW 23:52 → TELE-EAST 04-29 04:20 → CENTRAL 04-30 12:41
PROVIDERS: ADMIT Student in an Organized Health Care Education/Training Program; ATTEND Student in an Organized Health Care Education/Training Program
DX: A41.89 Other specified sepsis (principal); J15.69 Pneumonia due to other Gram-negative bacteria; J12.82 Pneumonia due to coronavirus disease 2019; J15.9 Unspecified bacterial pneumonia; I10 Essential (primary) hypertension; E11.9 Type 2 diabetes mellitus without complications; J45.909 Unspecified asthma, uncomplicated; U07.1 COVID-19; I95.1 Orthostatic hypotension; M94.0 Chondrocostal junction syndrome [Tietze]; E78.5 Hyperlipidemia, unspecified; Z90.49 Acquired absence of other specified parts of digestive tract; Z78.9 Other specified health status
CPT/HCPCS: 36415; 70450; 71045; 80048; 80053; 80061; 80076; 80307; 81001; 82306; 82607; 82746; 82962; 83036; 83605; 83735; 83880; 84443; 84484; 85025; 85610; 85730; 86141; 87040; 87426; 87804; 93005; 94640; 96360; G0378; J1815